=== PATIENT | male | born 1945 | race African-American/Black ===

== ENCOUNTER 2017-12-25 19:54 | Inpatient (IN) | payer OTHER ==
[~2017-12-25] VITALS: Ht 188 cm; Wt 91.0 kg
[~2017-12-25 19:54] MED LIST: AMLODIPINE BESY10 MG GT; Depakote Sprin125 MG GT; SENSIPAR30 MG GT; SYNTHROID,LEV125 MCG GT; TRAZODONE50 MG GT; TYLENOL325 M1 GT
[2017-12-25 20:03] VITALS: BP 155/88
[2017-12-25 20:29] LABS: BASO % 0.1 % (0.0-1.0); EOS % 0.4 % (1.0-4.0); HEMOGLOBIN 11.8 g/dl (14.0-18.0); LYMPH # 0.6 10*3/uL (1.3-4.4); LYMPH % 7.2 % (27.0-41.0); MEAN CELL VOLUME 98.6 fl (80.0-94.0); MEAN CORPUSCULAR HGB 32.3 pg (27.0-31.0); MEAN CORPUSCULAR HGB CONC 32.8 g/dl (33.0-37.0); MEAN PLATELET VOLUME 11.2 fl (9.6-12.3); MONO # 0.8 10*3/uL (0.1-1.0); MONO % 9.7 % (3.0-9.0); NEUT # 6.6 10*3/uL (2.3-7.9); NEUT % 81.6 % (47.0-73.0); PLATELET COUNT AUTOMATED 152 10*3/uL (130-400); RED BLOOD COUNT 3.65 10*6/uL (4.50-5.90); RED CELL DISTRI WIDTH 13.2 % (0-14.5); WHITE BLOOD COUNT 8.1 10*3/uL (4.8-10.8)
[2017-12-25 20:31] LABS: BILIRUBIN NEGATIVE (NEGATIVE); BLOOD TRACE-INTACT (NEGATIVE); CLARITY SL CLOUDY (CLEAR); COLOR YELLOW (YELLOW); GLUCOSE NEGATIVE (NEGATIVE); KETONE NEGATIVE (NEGATIVE); LEUKO ESTERASE 1+ (NEGATIVE); NITRITE NEGATIVE (NEGATIVE); PH 6.5 (5.0-9.0); UROBILINOGEN 0.2 E.U./dl (0.2-1.0)
[2017-12-25 20:39] LABS: URINE AMPHETAMINES < 1000 (1000ng/ml); URINE BARBITURATES < 200 (200ng/ml); URINE BENZODIAZEPINES < 200 (200ng/ml); URINE CANNABINOIDS (THC) < 50 (50ng/ml); URINE COCAINE < 300 (300ng/ml); URINE METHADONE < 300 (300ng/ml); URINE OPIATES < 300 (300ng/ml)
[2017-12-25 20:40] VITALS: BP 148/90
[2017-12-25 20:41] LABS: BACTERIA 1+
[2017-12-25 20:42] LABS: URINE PHENCYCLIDINE < 25 (25ng/ml)
[2017-12-25 20:43] LABS: YEAST 1+
[2017-12-25 20:43] LABS: ALBUMIN 3.2 gm/dl (3.1-4.5); ALKALINE PHOSPHATASE 77 U/L (45-117); BUN 27 mg/dl (7-24); CHLORIDE 109 mmol/L (98-107); CREATININE 1.56 mg/dL (0.70-1.30); POTASSIUM 4.4 mmol/L (3.5-5.1); SGOT/AST 52 IU/L (3-35); SGPT/ALT 35 U/L (12-78); SODIUM 147 mmol/L (136-145); TOTAL PROTEIN 6.6 gm/dL (6.4-8.2)
[2017-12-25 20:44] LABS: WBC 21-30 wbc/hpf (0-5)
[2017-12-25 20:46] LABS: ACETAMINOPHEN (TYLENOL) < 5.0 ug/ml (10-30); ETHYL ALCOHOL < 3.0 mg/dl (<3)
[2017-12-25] MEDS ORDERED: TYLENOL325 M1 PO (20:52)
[2017-12-25] MEDS ORDERED: NORVASC10 MG PO (20:52)
[2017-12-25] MEDS ORDERED: VIBRA-TAB100 MG PO (20:53)
[2017-12-25] MEDS ORDERED: RISPERDAL0.25 MG PO (20:55)
[2017-12-25] MEDS ORDERED: DULCOLAX10 M1 R (20:55)
[2017-12-25] MEDS ORDERED: MILK OF MA400 MG/5 M PO (20:55)
[2017-12-25] MEDS ORDERED: SYNTHROID,LEV125 MCG PO (20:56)
[2017-12-25] MEDS ORDERED: SENSIPAR30 MG PO (20:56)
[2017-12-25 21:10] VITALS: BP 133/85
[2017-12-25 21:40] VITALS: BP 130/84
[2017-12-25 22:00] VITALS: BP 157/74
[2017-12-25 22:30] VITALS: BP 157/74
[2017-12-25] MEDS ORDERED: DIVALPROEX SOD125 M1 PO (23:22)
[2017-12-25] MEDS ORDERED: TRAZODONE50 MG PO (23:22)
[2017-12-26] VITALS: BP 157/74
[2017-12-26 06:05] LABS: BASO % 0.1 % (0.0-1.0); EOS # 0.1 10*3/uL (0.0-0.4); EOS % 0.7 % (1.0-4.0); HEMATOCRIT 32.2 % (42.0-52.0); HEMOGLOBIN 10.4 g/dl (14.0-18.0); LYMPH # 0.5 10*3/uL (1.3-4.4); LYMPH % 7.8 % (27.0-41.0); MEAN CELL VOLUME 99.7 fl (80.0-94.0); MEAN CORPUSCULAR HGB 32.2 pg (27.0-31.0); MEAN CORPUSCULAR HGB CONC 32.3 g/dl (33.0-37.0); MONO # 0.6 10*3/uL (0.1-1.0); MONO % 9.1 % (3.0-9.0); NEUT # 5.6 10*3/uL (2.3-7.9); NEUT % 81.3 % (47.0-73.0); PLATELET COUNT AUTOMATED 135 10*3/uL (130-400); RED BLOOD COUNT 3.23 10*6/uL (4.50-5.90); RED CELL DISTRI WIDTH 13.2 % (0-14.5); WHITE BLOOD COUNT 6.9 10*3/uL (4.8-10.8)
[2017-12-26 06:19] LABS: CREATININE 1.44 mg/dL (0.70-1.30); POTASSIUM 4.2 mmol/L (3.5-5.1)
[2017-12-26 06:23] LABS: ACT PARTIAL THROMBO TIME 23.9 SECONDS (20.8-31.5); INTERNATIONAL NORM RATIO 1.2 (2.0-3.5)
[2017-12-26 06:24] LABS: FREE T4 0.62 ng/dl (0.76-1.46); PHOSPHOROUS 2.6 mg/dL (2.5-4.9)
[2017-12-26 06:30] LABS: THYROID STIM HORMONE (HS) 20.7 uIU/ml (0.358-4.75); VALPROIC ACID (DEPAKENE) 12.3 ug/ml (50-100)
[2017-12-26 07:55] LABS: VITAMIN D, 25-HYDROXY 21.4 ng/mL (30-100)
[2017-12-26 08:00] VITALS: BP 158/76
[2017-12-26 12:00] VITALS: BP 142/76
[2017-12-26 16:00] VITALS: BP 158/76
[2017-12-26 20:00] VITALS: BP 149/92
[2017-12-27] VITALS: BP 176/96
[2017-12-27 08:00] VITALS: BP 166/100
[2017-12-27 11:24] LABS: VENOUS BLOOD GAS O2 SAT 98.4 % (40-85); VENOUS PH 7.475 (7.32-7.43)
[2017-12-27 11:26] LABS: BASO % 0.2 % (0.0-1.0); EOS % 0.1 % (1.0-4.0); HEMATOCRIT 32.2 % (42.0-52.0); HEMOGLOBIN 10.8 g/dl (14.0-18.0); LYMPH # 0.4 10*3/uL (1.3-4.4); MEAN CELL VOLUME 97.6 fl (80.0-94.0); MEAN CORPUSCULAR HGB 32.7 pg (27.0-31.0); MEAN CORPUSCULAR HGB CONC 33.5 g/dl (33.0-37.0); MEAN PLATELET VOLUME 11.4 fl (9.6-12.3); MONO # 0.8 10*3/uL (0.1-1.0); MONO % 8.3 % (3.0-9.0); NEUT # 8.8 10*3/uL (2.3-7.9); NEUT % 86.4 % (47.0-73.0); PLATELET COUNT AUTOMATED 138 10*3/uL (130-400); RED CELL DISTRI WIDTH 13.3 % (0-14.5); WHITE BLOOD COUNT 10.2 10*3/uL (4.8-10.8)
[2017-12-27 12:00] VITALS: BP 146/77
[2017-12-27 12:05] LABS: CREATININE 1.89 mg/dL (0.70-1.30)
[2017-12-27 16:00] VITALS: BP 140/73
[2017-12-27 20:00] VITALS: BP 136/86
[2017-12-27 22:24] LABS: URINE CREATININE RANDOM 40.3 mg/dL
[2017-12-28] VITALS: BP 146/85
[2017-12-28 06:50] LABS: POTASSIUM 4.5 mmol/L (3.5-5.1)
[2017-12-28 06:52] LABS: CREATININE 1.81 mg/dL (0.70-1.30)
[2017-12-28 07:53] LABS: BASO % 0.3 % (0.0-1.0); EOS # 0.1 10*3/uL (0.0-0.4); EOS % 0.9 % (1.0-4.0); HEMATOCRIT 32.4 % (42.0-52.0); HEMOGLOBIN 10.3 g/dl (14.0-18.0); LYMPH # 0.6 10*3/uL (1.3-4.4); LYMPH % 8.7 % (27.0-41.0); MEAN CELL VOLUME 100.6 fl (80.0-94.0); MEAN CORPUSCULAR HGB CONC 31.8 g/dl (33.0-37.0); MEAN PLATELET VOLUME 12.2 fl (9.6-12.3); MONO # 0.6 10*3/uL (0.1-1.0); MONO % 8.7 % (3.0-9.0); NEUT # 5.3 10*3/uL (2.3-7.9); NEUT % 80.5 % (47.0-73.0); PLATELET COUNT AUTOMATED 134 10*3/uL (130-400); RED BLOOD COUNT 3.22 10*6/uL (4.50-5.90); RED CELL DISTRI WIDTH 13.3 % (0-14.5); WHITE BLOOD COUNT 6.6 10*3/uL (4.8-10.8)
[2017-12-28 08:00] VITALS: BP 145/74
[2017-12-28 12:00] VITALS: BP 155/85
[2017-12-28 16:00] VITALS: BP 127/79
[2017-12-28 20:00] VITALS: BP 136/75
[2017-12-29] VITALS: BP 148/78
[2017-12-29 06:40] LABS: BASO % 0.3 % (0.0-1.0); EOS # 0.1 10*3/uL (0.0-0.4); EOS % 1.9 % (1.0-4.0); HEMATOCRIT 31.6 % (42.0-52.0); HEMOGLOBIN 10.3 g/dl (14.0-18.0); LYMPH # 0.6 10*3/uL (1.3-4.4); LYMPH % 9.7 % (27.0-41.0); MEAN CELL VOLUME 98.8 fl (80.0-94.0); MEAN CORPUSCULAR HGB 32.2 pg (27.0-31.0); MEAN CORPUSCULAR HGB CONC 32.6 g/dl (33.0-37.0); MEAN PLATELET VOLUME 11.7 fl (9.6-12.3); MONO # 0.5 10*3/uL (0.1-1.0); MONO % 8.9 % (3.0-9.0); NEUT # 4.5 10*3/uL (2.3-7.9); NEUT % 78.2 % (47.0-73.0); PLATELET COUNT AUTOMATED 128 10*3/uL (130-400); RED CELL DISTRI WIDTH 13.2 % (0-14.5); WHITE BLOOD COUNT 5.8 10*3/uL (4.8-10.8)
[2017-12-29 07:11] LABS: ALBUMIN 2.7 gm/dl (3.1-4.5); ALKALINE PHOSPHATASE 69 U/L (45-117); BUN 31 mg/dl (7-24); CHLORIDE 106 mmol/L (98-107); CREATININE 1.37 mg/dL (0.70-1.30); POTASSIUM 3.8 mmol/L (3.5-5.1); SGOT/AST 37 IU/L (3-35); SGPT/ALT 28 U/L (12-78); SODIUM 146 mmol/L (136-145); TOTAL PROTEIN 5.8 gm/dL (6.4-8.2)
[2017-12-29 08:00] VITALS: BP 160/84
[2017-12-29 12:00] VITALS: BP 151/84
[2017-12-29 13:45] LABS: ABG BASE EXCESS 5.4 mmol/L (-2.0-2.0); ABG HCO3 28.9 mmol/l (22-26); ABG O2 SATURATION 95.5 % (95-97); ARTERIAL BLOOD GAS PCO2 38.5 mmHg (35-45); ARTERIAL BLOOD GAS PH 7.487 (7.35-7.45); ARTERIAL BLOOD GAS PO2 73.9 mmHg (80-90)
[2017-12-29 16:00] VITALS: BP 140/71
[2017-12-29] MEDS ORDERED: DIVALPROEX SOD125 M1 PO (16:46)
[2017-12-29] MEDS ORDERED: FLUCONAZOLE100 MG PEG (16:46)
[2017-12-29] MEDS ORDERED: Synthroid,Lev150 MCG PO (16:46)
[2017-12-29] MEDS ORDERED: Vitamin D PO (16:46)
== END 2017-12-29 18:15 | disposition home health service (06) | DRG 871 ==
LOC: ED 19:54 → 3N 21:11 → 5E 21:11
PROVIDERS: Internal Medicine; Internal Medicine Nephrology; Student in an Organized Health Care Education/Training Program
DX: A41.9 Sepsis, unspecified organism (principal); G93.41 Metabolic encephalopathy; N39.0 Urinary tract infection, site not specified; E87.0 Hyperosmolality and hypernatremia; E44.1 Mild protein-calorie malnutrition; I31.3 Pericardial effusion (noninflammatory); N17.9 Acute kidney failure, unspecified; N13.30 Unspecified hydronephrosis; F02.81 Dementia in other diseases classified elsewhere, unspecified severity, with behavioral disturbance; N18.3 Chronic kidney disease, stage 3 (moderate); F32.9 Major depressive disorder, single episode, unspecified; E03.9 Hypothyroidism, unspecified; I12.9 Hypertensive chronic kidney disease with stage 1 through stage 4 chronic kidney disease, or unspecified chronic kidney disease; E21.1 Secondary hyperparathyroidism, not elsewhere classified; E83.52 Hypercalcemia; D53.9 Nutritional anemia, unspecified; R73.9 Hyperglycemia, unspecified; R31.9 Hematuria, unspecified; K59.09 Other constipation; R13.10 Dysphagia, unspecified; R26.9 Unspecified abnormalities of gait and mobility; R00.1 Bradycardia, unspecified; E83.41 Hypermagnesemia; E87.8 Other disorders of electrolyte and fluid balance, not elsewhere classified; E83.39 Other disorders of phosphorus metabolism; E83.89 Other disorders of mineral metabolism; R33.9 Retention of urine, unspecified; G30.9 Alzheimer's disease, unspecified; Z93.1 Gastrostomy status; Z87.891 Personal history of nicotine dependence; Z79.899 Other long term (current) drug therapy; Z83.3 Family history of diabetes mellitus; Z80.8 Family history of malignant neoplasm of other organs or systems; Z68.25 Body mass index [BMI] 25.0-25.9, adult

== ENCOUNTER 2017-12-29 16:03 | Inpatient (IN) | payer OTHER ==
[~2017-12-29] VITALS: Ht 187.9 cm; Wt 91.0 kg
--- NOTE | ~2017-12-29 | PR ---
[place], [place] PROGRESS NOTE [id number] UN[facility] #: [id number] ROOM: 311 DOCTOR: MANUEL WOOTEN MD BIRTHDATE: [birth year] DOS: 12/31/2017 INTERVAL NOTE CHIEF COMPLAINT: The patient was nonverbal. SUMMARY OF THE VISIT: The patient was attempted to be interviewed as he was resting in his bed. He was lying in the bed catty corner with his leg draped over the side. Multiple attempts were made to engage him in conversation, but he did not even open his eyes. Nurses report that he continues to be physically combative with hands on care. Otherwise, he has been fairly pleasant and has voiced no other complaints. Staff do also report that there is concern that he has voiced depressive thoughts and suicidal thoughts in the past. MENTAL STATUS: My mental status examination is limited by his somnolence. PLAN: I will discontinue trazodone in lieu of Remeron orally disintegrating tablet 15 mg at bedtime. This will have more of an antidepressant effect while also aiding sleep. We will monitor and support. MANUEL WOOTEN MD CM:PNTRANS [id number] MANUEL WOOTEN MD 12/31/17 1543 interface
--- NOTE | ~2017-12-29 | PR ---
[place], [place] PROGRESS NOTE [id number] UNIT #: [id number] ROOM: 311 DOCTOR: MANUEL WOOTEN MD BIRTHDATE: [birth year] DOS: 01/01/2018 INTERVAL NOTE CHIEF COMPLAINT: The patient was nonverbal and snoring. SUMMARY OF THE VISIT: The patient was once again attempted to be interviewed as he was resting in bed. He was snoring loudly. I attempted to call his name out repeatedly, but to no avail. The patient did not awake or engage in any conversation. Nurses report he has been very somnolent for the last 24-36 hours. MENTAL STATUS: It is limited due to his overall lack of somnolence. PLAN: I will check a CBC with diff and a CMP today at noon to evaluate his medical status. I will discontinue his Depakene at this point to see if this will allow him to be more awake and alert. I will start him on Exelon patch 4.6 mg daily in an effort to combat some of the confusion and dementia. We will attempt to engage in individual and maya milieu activity, returning to the least restrictive environment when psychiatrically stable. MANUEL WOOTEN MD CM:PNTRANS [id number] MANUEL WOOTEN MD 01/01/18 1204 interface
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
[~2017-12-29 16:03] MED LIST changes: +DIVALPROEX SOD125 M1 PO; +DULCOLAX10 M1 R; +MILK OF MA400 MG/5 M PO; +NORVASC10 MG PO; +RISPERDAL0.25 MG PO; +SENSIPAR30 MG PO; +SYNTHROID,LEV125 MCG PO; +TRAZODONE50 MG PO; +TYLENOL325 M1 PO; +VIBRA-TAB100 MG PO
[2017-12-29] MEDS ORDERED: DIVALPROEX SOD125 M1 PO (16:46)
[2017-12-29] MEDS ORDERED: FLUCONAZOLE100 MG PEG (16:46)
[2017-12-29] MEDS ORDERED: Vitamin D PO (16:46)
[2017-12-29] MEDS ORDERED: Synthroid,Lev150 MCG PO (16:46)
[2017-12-29 18:35] VITALS: BP 118/60
[2017-12-29 20:00] VITALS: BP 118/60
[2017-12-29 22:30] VITALS: BP 118/60
[2017-12-30 07:57] VITALS: BP 122/66
[2017-12-30 09:50] LABS: ALBUMIN 2.4 gm/dl (3.1-4.5); ALKALINE PHOSPHATASE 56 U/L (45-117); BUN 26 mg/dl (7-24); CHLORIDE 105 mmol/L (98-107); CHOLESTEROL 91 mg/dL (<200); CREATININE 1.15 mg/dL (0.70-1.30); HDL CHOLESTEROL 35 mg/dl (40-60); LDL CHOLESTEROL 43 mg/dL (9-159); POTASSIUM 3.6 mmol/L (3.5-5.1); SGOT/AST 43 IU/L (3-35); SGPT/ALT 30 U/L (12-78); SODIUM 140 mmol/L (136-145); TOTAL PROTEIN 5.4 gm/dL (6.4-8.2); TRIGLYCERIDES 64 mg/dl (<150); VLDL CHOLESTEROL 13 mg/dL (6-40)
[2017-12-30 10:18] LABS: VITAMIN D, 25-HYDROXY 24.5 ng/mL (30-100)
[2017-12-30 20:19] VITALS: BP 138/68
[2017-12-31 09:12] VITALS: BP 150/70
[2017-12-31 13:46] LABS: ALBUMIN 2.4 gm/dl (3.1-4.5); BUN 31 mg/dl (7-24); CHLORIDE 99 mmol/L (98-107); PHOSPHOROUS 1.5 mg/dL (2.5-4.9); POTASSIUM 3.4 mmol/L (3.5-5.1); SODIUM 137 mmol/L (136-145)
[2017-12-31 19:48] VITALS: BP 111/65
[2017-12-31 19:51] VITALS: BP 155/75
[2018-01-01 06:25] VITALS: BP 135/60
[2018-01-01 14:00] LABS: BASO % 0.6 % (0.0-1.0); EOS # 0.1 10*3/uL (0.0-0.4); EOS % 1.8 % (1.0-4.0); HEMOGLOBIN 10.1 g/dl (14.0-18.0); LYMPH # 0.8 10*3/uL (1.3-4.4); LYMPH % 15.8 % (27.0-41.0); MEAN CORPUSCULAR HGB CONC 33.7 g/dl (33.0-37.0); MEAN PLATELET VOLUME 11.1 fl (9.6-12.3); MONO # 0.5 10*3/uL (0.1-1.0); MONO % 9.6 % (3.0-9.0); NEUT # 3.4 10*3/uL (2.3-7.9); NEUT % 69.5 % (47.0-73.0); PLATELET COUNT AUTOMATED 122 10*3/uL (130-400); RED BLOOD COUNT 3.06 10*6/uL (4.50-5.90); WHITE BLOOD COUNT 4.9 10*3/uL (4.8-10.8)
[2018-01-01 14:32] LABS: ALBUMIN 2.5 gm/dl (3.1-4.5); ALKALINE PHOSPHATASE 81 U/L (45-117); BUN 23 mg/dl (7-24); CHLORIDE 103 mmol/L (98-107); CREATININE 1.18 mg/dL (0.70-1.30); POTASSIUM 3.6 mmol/L (3.5-5.1); SGOT/AST 42 IU/L (3-35); SGPT/ALT 30 U/L (12-78); SODIUM 141 mmol/L (136-145); TOTAL PROTEIN 5.7 gm/dL (6.4-8.2)
[2018-01-01 20:26] VITALS: BP 125/65
[2018-01-02 07:47] VITALS: BP 132/71
[2018-01-02] MEDS ORDERED: LACTULOSE20 GM/30 M PEG (11:18)
[2018-01-02] MEDS ORDERED: MIRTAZAPINE15 M1 PO (11:18)
[2018-01-02] MEDS ORDERED: RISPERDAL M BC (11:18)
[2018-01-02] MEDS ORDERED: RIVASTIGMINE1 EACH T (11:18)
== END 2018-01-02 11:55 | DRG 56 ==
LOC: 3N 16:03
PROVIDERS: Psychiatry & Neurology Psychiatry; Registered Nurse
DX: G30.9 Alzheimer's disease, unspecified (principal); E43 Unspecified severe protein-calorie malnutrition; F02.81 Dementia in other diseases classified elsewhere, unspecified severity, with behavioral disturbance; N25.81 Secondary hyperparathyroidism of renal origin; F63.81 Intermittent explosive disorder; D53.9 Nutritional anemia, unspecified; R13.10 Dysphagia, unspecified; E55.9 Vitamin D deficiency, unspecified; E03.9 Hypothyroidism, unspecified; E83.52 Hypercalcemia; F32.9 Major depressive disorder, single episode, unspecified; N18.3 Chronic kidney disease, stage 3 (moderate); I12.9 Hypertensive chronic kidney disease with stage 1 through stage 4 chronic kidney disease, or unspecified chronic kidney disease; Z80.3 Family history of malignant neoplasm of breast; Z83.3 Family history of diabetes mellitus; Z68.25 Body mass index [BMI] 25.0-25.9, adult